=== PATIENT | female | born 1955 | race Caucasian/White ===

== ENCOUNTER 2016-10-06 18:50 | Emergency (ER) | payer BC ==
[2016-10-06 18:57] VITALS: BP 146/72
[2016-10-06] MEDS ORDERED: Sodium Chloride 0.9% 1,000 ML IV ONE (19:22)
--- NOTE | 2016-10-06 19:24 | EDM.PDOC ---
ED HPI GENERAL MEDICAL PROBLEM - General Chief Complaint: General Stated Complaint: intermittent dizziness since 1330 Time Seen by Provider: 10/06/16 19:08 Source of Information: Reports: Patient History Limitations: Reports: No limitations - History of Present Illness INITIAL COMMENTS - FREE TEXT/NARRATIVE: This patient is a pleasant 61 year old female that presents to the ER. Patient reports that she was gettnig her nails done at a nail salon at about 1:30pm this afternoon when she became, hot, dizzy, and had floaters in her eyes, and nauseated. She reported it lasted for a while. She reports that it got much better, then came again, but not as bad. She reports that it is not as bad now. She reports it is improving, but is still mildly present. The patient denies headache, vomiting, diarrhea, fever, cough, drainage, neck pain, neck stiffness , chest pain, shortness of breath, abd pain, urinary/bowel changes, rash. She reports she has had some mild sinus pressure for several weeks now. She does report for a few days having left facial numbness at sin level per patient. She denies any unilateral weaknesses. She is fully alert and oriented. She is able to ambulate without any difficulty. Patient reports that she is prescribed diabetic and htn medications that she is not compliant with. She took today after dizziness began, but not since 1 week ago prior to that. Onset: today Onset Date: 10/06/16 Onset Time: 13:30 Duration: Intermittent, Improving Severity: mild Improves with: Reports: None Worsens with: Reports: None Associated Symptoms: Reports: nausea/vomiting. Denies: confusion, chest pain, cough, cough w sputum, diaphoresis, fever/chills, headaches, loss of appetite, malaise, rash, seizure - Related Data Allergies Allergy/AdvReac Type Severity Reaction Status Date / Time No Known Allergies Allergy Verified 10/06/16 18:57 Home Meds: Home Meds Lisinopril [Prinivil] 10 mg PO DAILY 03/10/15 [History] glipiZIDE [Glipizide ER] 10 mg PO DAILY 10/06/16 [History] Past Medical History Cardiovascular History: Reports: Hypertension Other Respiratory History: emphysema. quit smoking about a year ago Other Musculoskeletal History: hip and knee pain d/t no cartilage Endocrine/Metabolic History: Reports: Diabetes, type II - Past Surgical History Female Surgical History: Reports: Hysterectomy Other Musculoskeletal Surgeries/Procedures:: plate in ankle on right Social & Family History - Tobacco Use Smoking Status *Q: Never Smoker Used Tobacco, but Quit: Yes Month Tobacco Last Used: Second Hand Smoke Exposure: No - Recreational Drug Use Recreational Drug Use: No ED ROS GENERAL - Review of Systems Review Of Systems: See Below Constitutional: Reports: other (hot sensation) HEENT: Reports: Other (eye floaters bilateral. improving. left check numbness sensation at sin level.) Respiratory: Reports: No Symptoms Cardiovascular: Reports: No symptoms Endocrine: Reports: no symptoms GI/Abdominal: Reports: Nausea : Reports: no symptoms Musculoskeletal: Reports: no symptoms Skin: Reports: no symptoms Neurological: Reports: Dizziness. Denies: Headache, Syncope, Tingling, Tremors , Trouble Speaking, Difficulty Walking, Weakness, Change in Speech, Gait Disturbance Psychiatric: Reports: No symptoms Hematologic/Lymphatic: Reports: no symptoms Immunologic: Reports: no symptoms ED EXAM, GENERAL - Physical Exam Exam: See Below Exam Limited By: No limitations General Appearance: alert, WD/WN, no apparent distress Eye Exam: bilateral eye: EOMI, normal inspection, PERRL Ears: normal external exam, normal canal, hearing grossly normal, normal TMs Ear Exam: bilateral ear: auricle normal, canal normal, TM normal Nose: normal inspection, normal mucosa, no blood Throat/Mouth: Normal inspection, Normal lips, Normal teeth, Normal gums, Normal oropharynx, Normal voice, No airway compromise Head: atraumatic, normocephalic Neck: normal inspection, supple, non-tender, full range of motion Respiratory/Chest: no respiratory distress, lungs clear, normal breath sounds, no accessory muscle use Cardiovascular: normal peripheral pulses, regular rate, rhythm, no edema, no gallop, no JVD, no murmur, no rub Peripheral Pulses: 2+: carotid (L), carotid (R), radial (L), radial (R), posterior tibial (L), posterior tibial (R) GI/Abdominal: soft, non tender Back Exam: normal inspection, full range of motion. No: CVA tenderness (L), CVA tenderness (R) Extremities: normal inspection, normal range of motion, non-tender, no pedal edema, normal capillary refill Neurological: alert, oriented, CN II-XII intact, normal cognition, normal gait, no motor/sensory deficits. No: inattentive, confused, disoriented, slow to respond, unresponsive, memory loss remote events, memory loss recent events, abnormal gait, sensory/motor deficit Psychiatric: normal affect, normal mood Skin Exam: Warm, Dry, Intact, Normal color, No rash Lymphatic: no adenopathy EKG INTERPRETATION EKG Date: 10/06/16 Time: 19:32 Rhythm: NSR Rate (beats/min): 65 Comparison: NA - no prior EKG Course - Vital Signs Last Recorded V/S: Last Vital Signs Temp 98.7 F 10/06/16 18:52 Pulse 71 10/06/16 18:52 Resp 20 10/06/16 18:52 BP 146/72 H 10/06/16 18:52 Pulse Ox 100 10/06/16 18:52 Orthostatic Blood Pressure [ 122/80 Supine] - Orders/Labs/Meds Orders: Active Orders 24 hr Category Date Time Status EKG Documentation Completion [RC] STAT Care 10/06/16 19:09 Active Orthostatic Vital Signs [RC] ASDIRECTED Care 10/06/16 19:03 Active Head wo Cont [CT] Stat Exams 10/06/16 19:22 Taken Labs: Laboratory Tests 10/06/16 10/06/16 10/06/16 Range/Units 19:09 19:32 19:32 WBC 6.5 (5.0-10.0) 10^3/uL RBC 4.44 (4.00-5.50) 10^6/uL Hgb 13.2 (12.0-16.0) g/dL Hct 40.6 (37.0-47.0) % MCV 91.4 (82.0-94.0) fL MCH 29.7 (27.0-32.0) pg MCHC 32.5 L (33.0-38.0) g/dL RDW Coeff of Ismael 13.3 (11.0-15.0) % Plt Count 295 (150-400) 10^3/uL Neut % (Auto) 54.1 (35-85) % Lymph % (Auto) 33.5 (10-55) % [place] % (Auto) 8.5 (0-16) % Eos % (Auto) 3.1 (0-5) % Baso % (Auto) 0.8 (0-3) % Neut # (Auto) 3.51 (1.80-7.00) 10^3/uL Lymph # (Auto) 2.17 (1.00-4.80) 10^3/uL [place] # (Auto) 0.55 (0.00-0.80) 10^3/uL Eos # (Auto) 0.20 (0.00-0.45) 10^3/uL Baso # (Auto) 0.05 10^3/uL Sodium 142 (136-145) mEq/L Potassium 3.8 (3.5-5.0) mEq/L Chloride 105 (98-106) mEq/L Carbon Dioxide 28 (21-32) mmol/L BUN 12 (7-18) mg/dL Creatinine 0.7 (0.6-1.0) mg/dL Est Cr Clr Drug Dosing 71.58 mL/min Estimated GFR (MDRD) > 60 (>=60) mL/min Glucose 219 H D (75-99) mg/dL Calcium 8.6 (8.4-10.1) mg/dL Total Bilirubin 0.3 (0.0-1.0) mg/dL AST 17 (15-37) U/L ALT 21 (12-78) U/L Alkaline Phosphatase 78 (46-116) U/L Troponin I < 0.017 (0.00-0.06) ng/mL Uve-I-Sspspaynljh Pept 152 (0-1000) pg/nL Total Protein 7.0 (6.4-8.2) g/dL Albumin 3.3 L (3.4-5.0) g/dL Urine Color Yellow (YELLOW) Urine Appearance Clear (CLEAR) Urine pH 7.0 (4.5-8.0) Ur Specific [place] 1.021 H (1.003-1.020) Urine Protein Negative (NEGATIVE) mg/dL Urine Glucose (UA) 500 H (NEGATIVE) mg/dL Urine Ketones Negative (NEGATIVE) mg/dL Urine Occult Blood Negative (NEGATIVE) Urine Nitrite Negative (NEGATIVE) Urine Bilirubin Negative (NEGATIVE) Urine Urobilinogen 0.2 (0.2-1.0) EU/dL Ur Leukocyte Esterase Negative (NEGATIVE) Urine RBC Not seen (0-5) /HPF Urine WBC Not seen (0-5) /HPF Ur Epithelial Cells Few H (NOT SEEN) /HPF Urine Bacteria Occasional H (NOT SEEN) /HPF Meds: Medications Discontinued Medications Generic Name Dose Route Start Last Admin Trade Name Eduin PRN Reason Stop Dose Admin Sodium Chloride 1,000 mls @ 1,000 mls/hr 10/06/16 19:22 10/06/16 19:47 Normal Saline IV 10/06/16 20:21 1,000 mls/hr .BOLUS ONE Administration - Radiology Interpretation Free Text/Narrative:: Head Ct: Discussed with radiologist: no acute findings. CT Results Date: 10/06/16 CT Results Time: 20:25 Departure - Departure Time of Disposition: 20:26 Disposition: Home, Self-Care 01 Condition: fair Clinical Impression: Dizziness Instructions: Dizziness, [id number] Referrals: Valarie Montaño PA-C [Primary Care Provider] - Forms: ED Department Discharge Additional Instructions: Followup with your primary care provider Return to the ER for worsening of condition or any emergent concerns Increase fluids Go home and rest - My Orders Last 24 Hours: My Active Orders 10/06/16 19:03 Orthostatic Vital Signs [RC] ASDIRECTED 10/06/16 19:09 EKG Documentation Completion [RC] STAT 10/06/16 19:22 Head wo Cont [CT] Stat - Assessment/Plan Last 24 Hours: My Active Orders 10/06/16 19:03 Orthostatic Vital Signs [RC] ASDIRECTED 10/06/16 19:09 EKG Documentation Completion [RC] STAT 10/06/16 19:22 Head wo Cont [CT] Stat Plan: PLEASE SEE RN NOTE FOR PFSH.
[2016-10-06 19:50] LABS: CHLORIDE,CL 105 mEq/L (98-106); SODIUM,NA 142 mEq/L (136-145)
== END 2016-10-06 20:55 | disposition home or self-care (01) ==
LOC: CC.ED 18:50
DX: R42 Dizziness and giddiness (principal); I10 Essential (primary) hypertension; E11.9 Type 2 diabetes mellitus without complications; J43.9 Emphysema, unspecified
CPT/HCPCS: 36415; 70450; 80053; 81001; 83880; 84484; 85025; 93005; 96360; 99284; J7030